=== PATIENT | female | born 1985 | race Caucasian/White ===

== ENCOUNTER 2022-01-24 16:45 | Emergency (ER) | payer SELFPAY ==
[~2022-01-24] VITALS: Ht 162.5 cm; Wt 68.0 kg
[2022-01-24 16:45] VITALS: BP 130/84
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
== END 2022-01-24 17:36 | disposition home or self-care (01) ==
LOC: ER 16:47
DX: T74.21XA Adult sexual abuse, confirmed, initial encounter (principal); Y07.59 Other non-family member, perpetrator of maltreatment and neglect
CPT/HCPCS: 99283

== ENCOUNTER 2022-02-06 13:06 | Emergency (ER) | payer MEDICAID ==
[~2022-02-06] VITALS: Ht 162 cm; Wt 68.3 kg
--- NOTE | 2022-02-06 13:44 | ED Psychosocial ---
General Chief Complaint: Psych/Social Disorder Stated Complaint: PSYCH EVAL-SUICIDAL IDEATIONS Nursing Triage Note: PT AMB TO RM 8 PT STATES YESTERDAY AT APPROX 10 AM HAD TAKEN APPROX 50 LEXAPRO 10MG TABLETS TRYING TO HARM SELF, PT STATES HAS HAD A ROUGH TIME WOULD NOT GO INTO DETAILS AND HAS HAD DEPRESSION FOR A LONG TIME. STATES ATTEMPTED SUICIDE WHEN WAS 17YRS OLD AND HER FATHER COMMITTED SUICIDE YRS AGO. PT DENIES BEING SUICIDAL AT THIS X. STATES JUST WANTS TO GET SOME HELP. FRIEND IN WAITING ROOM. Source: patient Exam Limitations: no limitations (SARAI BRADY) History of Present Illness Date Seen by Provider: Feb 06, 2022 Time Seen by Provider: 13:40 Initial Comments Patient is a 37-year-old female who presents to the ED for suicidal thoughts. This occurred yesterday. She states yesterday morning around 10 AM she took around 10 tablets of her 10 mg Lexapro for suicidal attempt. She states she went to bed and nap for 3 hours and woke up without any complaints. Patient recently moved from [place] 2 weeks ago. Patient friend brought her to the ED concerning for her suicidal thoughts yesterday. She states she has a history of depression. Does not see any therapist at this time. Denies hospitalization. Patient has no current suicidal or homicidal thoughts. Denies of any drug use or alcohol use. Denies chest pain, shortness of breath, nausea vomiting, diarrhea, fever, chills. Concern for . No urinary symptoms. (SARAI BRADY) Allergies and Home Medications Allergies Coded Allergies: No Known Drug Allergies (Unverified , 02/06/22) Patient Home Medication List Home Medication List Reviewed: Yes (SARAI BRADY) Review of Systems Constitutional: No chills, No diaphoresis EENTM: No hearing loss, No ear pain, No blurred vision, No double vision Respiratory: No cough, No dyspnea on exertion Cardiovascular: No chest pain Gastrointestinal: No abdominal pain, No diarrhea, No nausea, No vomiting Genitourinary: No decreased output, No discharge Musculoskeletal: No back pain, No gout Skin: No change in color, No change in hair/nails Psychiatric/Neurological: Depressed (SARAI BRADY) All Other Systems Reviewed Negative Unless Noted: Yes (SARAI BRADY) Past Jlqvlag-Jjeeuv-Fnrrsn Hx Patient Social History Tobacco Use?: No Substance use?: No Alcohol Use?: No Pt feels they are or have been: No (SARAI BRADY) Immunizations Up To Date First/Initial COVID19 Vaccinat: 2020 Second COVID19 Vaccination Lasha: 2020 COVID19 Vaccine Chemical Operations Specialist: RAMO (SARAI BRADY) Past Medical History Surgery/Hospitalization HX: HX CERVICAL CA Last Menstrual Period: Feb 05, 2022 (SARAI BRADY) Physical Exam Vital Signs - First Documented 02/06/22 02/06/22 13:14 18:00 Temp 36.5 Pulse 102 Resp 18 B/P (MAP) 134/88 (103) Pulse Ox 97 O2 Delivery Room Air (KYAW,JEAN CARLOS K DO) Capillary Refill : Less Than 3 Seconds (SARAI BRADY) Height, Weight, BMI Height: '" Weight: lbs. oz. kg; 26.00 BMI Method: General Appearance: WD/WN, no apparent distress HEENT: PERRL/EOMI, normal ENT inspection, TMs normal, pharynx normal Neck: non-tender, full range of motion, supple, normal inspection Respiratory: chest non-tender, lungs clear, normal breath sounds, no respiratory distress Gastrointestinal: normal bowel sounds, non tender, soft, no organomegaly Extremities: normal range of motion, non-tender, normal inspection, no pedal edema Neurologic/Psychiatric: grill prep cook II-XII nml as tested, no motor/sensory deficits, alert, normal mood/affect, oriented x 3 Thoughts/Hallucinations: normal thought pattern, no apparent hallucination Skin: normal color, warm/dry (SARAI BRADY) Suicide Risk Suicide Risk Suicide Risk Level / RN Screen: Low Low Suicide Risk Level []Suicidal Ideation WITHOUT method, intent, plan or behavior more than a month ago []]Modifiable risk factors and strong protective factors []No reported history of suicidal ideation or behavior []Patient reports/exhibits symptoms consistent with psychosis []Patient reports a plan that would be unrealistic/impossible to complete and intent []Suicide attempt prior to arrival (Indicates at LEAST Low Suicide Risk, consider other risk factors) Moderate Suicide Risk Level: []Suicidal ideation with method, WITHOUT plan, intent or behavior in the past month []Multiple risk factors and few protective factors []Patient reports intent to follow through on plan to end life if allowed to leave hospital, and has attempted to elope from the hospital High Suicide Risk Level: [] Suicidal ideation with intent or intent with a plan in the past month [] Patient has harmed self or attempted suicide while in the hospital [] Patient has hx of or current Command Auditory hallucinations to harm self or others that they follow without hesitation [] Patient refuses to disclose plan, and indicates intent to complete [] Patient reports plan that is possible to accomplish and/or has means to comp lete Risk factors supporting recommendation: [] Non-compliance with treatment (acute or chronic) [] Patient has access to or owns firearms and/or stockpiled medications [] Hx Impulsive behavior [] Pending incarceration or homelessness [] Sexual abuse [] Family history and/or exposure to suicide [] Adverse childhood experiences [] Exposure to violence or negative socio-political cultural, and economic forces [] Current or hx of substance use/abuse [] Chronic physical pain or other acute medical problem (AIDS, COPD, Cancer, etc) [] Perceived burden on family or others [] Patient has attempted to elope [] Unable to answer and/or unable to identify [] Refuses to agree to a safety plan Protective Factors supporting recommendation: [] Identifies reasons for living [] Future plans/goals [] Engaged in work or School [] Good family support network [] Good social support network [] Responsibility to family [] Belief that suicide is immoral, against their scientology beliefs [] High spirituality and involvement in gnosticist community [] Fear of or dying due to pain and suffering [] Established outpt psychiatric services [] Unable to answer and/or unable to identify Risk Assessment Tool Score: Low (SARAI BRADY) Progress/Results/Core Measures Results/Orders Lab Results Laboratory Tests Test 02/06/22 13:55 02/06/22 14:15 02/06/22 14:38 02/06/22 17:27 Range/Units White Blood Count 4.8 4.3-11.0 10^3/uL Red Blood Count 4.23 3.80-5.11 10^6/uL Hemoglobin 14.6 11.5-16.0 g/dL Hematocrit 43 35-52 % Mean Corpuscular Volume 101 H 80-99 fL Mean Corpuscular Hemoglobin 35 H 25-34 pg Mean Corpuscular Hemoglobin Concent 34 32-36 g/dL Red Cell Distribution Width 12.9 10.0-14.5 % Platelet Count 190 130-400 10^3/uL Mean Platelet Volume 8.2 L 9.0-12.2 fL Immature Granulocyte % (Auto) 0 % Neutrophils (%) (Auto) 59 42-75 % Lymphocytes (%) (Auto) 32 12-44 % Monocytes (%) (Auto) 5 0-12 % Eosinophils (%) (Auto) 2 0-10 % Basophils (%) (Auto) 1 0-10 % Neutrophils # (Auto) 2.9 1.8-7.8 10^3/uL Lymphocytes # (Auto) 1.6 1.0-4.0 10^3/uL Monocytes # (Auto) 0.3 0.0-1.0 10^3/uL Eosinophils # (Auto) 0.1 0.0-0.3 10^3/uL Basophils # (Auto) 0.1 0.0-0.1 10^3/uL Immature Granulocyte # (Auto) 0.0 0.0-0.1 10^3/uL Sodium Level 141 135-145 MMOL/L Potassium Level 3.9 3.6-5.0 MMOL/L Chloride Level 104 98-107 MMOL/L Carbon Dioxide Level 17 L 21-32 MMOL/L Anion Gap 20 H 5-14 MMOL/L Blood Urea Nitrogen 9 7-18 MG/DL Creatinine 0.76 0.60-1.30 MG/DL Estimat Glomerular Filtration Rate 105 BUN/Creatinine Ratio 12 Glucose Level 83 70-105 MG/DL Calcium Level 8.6 8.5-10.1 MG/DL Corrected Calcium 8.3 L 8.5-10.1 MG/DL Total Bilirubin 0.5 0.1-1.0 MG/DL Aspartate Amino Transf (AST/SGOT) 40 H 5-34 U/L Alanine Aminotransferase (ALT/SGPT) 24 0-55 U/L Alkaline Phosphatase 53 40-136 U/L Total Protein 7.5 6.4-8.2 GM/DL Albumin 4.4 3.2-4.5 GM/DL Salicylates Level < 5.0 L 5.0-20.0 MG/DL Acetaminophen Level < 10 L 10-30 UG/ML Serum Alcohol 280 H 166 H <10 MG/DL Influenza Type A (RT-PCR) Not Detected Not Detecte Influenza Type B (RT-PCR) Not Detected Not Detecte SARS-CoV-2 RNA (RT-PCR) Not Detected Not Detecte Urine Color YELLOW Urine Clarity CLEAR Urine pH 6.0 5-9 Urine Specific [place] 1.025 H 1.016-1.022 Urine Protein TRACE H NEGATIVE Urine Glucose (UA) NEGATIVE NEGATIVE Urine Ketones NEGATIVE NEGATIVE Urine Nitrite NEGATIVE NEGATIVE Urine Bilirubin NEGATIVE NEGATIVE Urine Urobilinogen 0.2 < = 1.0 MG/DL Urine Leukocyte Esterase NEGATIVE NEGATIVE Urine RBC (Auto) 2+ H NEGATIVE Urine RBC 0-2 /HPF Urine WBC RARE /HPF Urine Squamous Epithelial Cells 2-5 /HPF Urine Crystals NONE /LPF Urine Bacteria TRACE /HPF Urine Casts NONE /LPF Urine Mucus SMALL H /LPF Urine Culture Indicated NO Urine Test NEGATIVE NEGATIVE Urine Opiates Screen NEGATIVE NEGATIVE Urine Oxycodone Screen NEGATIVE NEGATIVE Urine Methadone Screen NEGATIVE NEGATIVE Urine Propoxyphene Screen NEGATIVE NEGATIVE Urine Barbiturates Screen NEGATIVE NEGATIVE Ur Tricyclic Antidepressants Screen NEGATIVE NEGATIVE Urine Phencyclidine Screen NEGATIVE NEGATIVE Urine Amphetamines Screen NEGATIVE NEGATIVE Urine Methamphetamines Screen NEGATIVE NEGATIVE Urine Benzodiazepines Screen NEGATIVE NEGATIVE Urine Cocaine Screen NEGATIVE NEGATIVE Urine Cannabinoids Screen NEGATIVE NEGATIVE Test 02/06/22 22:05 02/07/22 00:33 Range/Units Serum Alcohol 38 H < 10 <10 MG/DL (JEAN CARLOS CARD DO) My Orders Orders - JEAN CARLOS CARD DO Ed Iv/Invasive Line Start (02/06/22 23:04) Lactated Ringers (Lr 1000 Ml Iv Solution (02/06/22 23:15) Alcohol (02/07/22 00:21) (JEAN CARLOS CARD DO) Medications Given in ED Current Medications Medications Dose Ordered Sig/Jonatan Route Start Time Stop Time Status Last Admin Dose Admin Lactated Ringer's 1,000 ml @ 0 mls/hr Q0M ONCE IV 02/06/22 23:15 02/06/22 23:16 DC 02/06/22 23:08 999 MLS/HR (JEAN CARLOS CARD DO) Vital Signs/I&O 02/06/22 02/06/22 02/06/22 18:00 19:55 23:08 Temp 37.1 37.0 Pulse 104 105 Resp 16 16 B/P (MAP) 141/97 139/95 Pulse Ox 98 98 O2 Delivery Room Air Room Air Room Air 02/07/22 00:00 Intake Total 2000 ml Balance 2000 ml (JEAN CARLOS CARD DO) Blood Pressure Mean: 103 Progress Progress Note : Progress Note 2300--ASSUMED CARE OF PT, ETOH LEVEL IS TRENDING DOWN, PT IS RECEIVING IV FLUIDS PT IS CALM AND COOPERATIVE AND VOICES NO COMPLAINTS. MALE FRIEND CONTINUES TO STAY WITH PT. WILL RECHECK ETOH LEVEL AROUND 0030 0400--PT REMAINS CALM AND VOICES NO COMPLAINTS. MALE FRIEND CONTINUES TO STAY WITH PT. STILL ATTEMPTING TO GET A MENTAL HEALTH SCREEN. [facility] HAS BEEN CONTACTED MULTIPLE TIMES. 0445--PT UP TO BATHROOM, AND UPDATED HER THAT SHE WAS NEXT IN LINE TO BE SCREENED, AND SHE CONTINUES TO BE AGREEABLE TO THIS. PT VOICES NO COMPLAINTS. (JEAN CARLOS CARD DO) Comment Sinus rhythm, low QRS voltage in precordial leads, 94 bpm, QRS duration 77 MS, QTc 391 MS (SARAI BRADY) Departure Communication (Admissions) 0100--[facility] CONTACTED TO DO MENTAL HEALTH SCREEN. ALL PT'S INFORMATION IS BEING FAXED. 0250--CALLED [facility], NO AVAILABLE AGENTS, THEN DISCONNECTED. 0258--CALLED [facility] FOR AN UPDATE ON WHERE PT IS AT IN THE SCREENING PROCESS, AND TO VERIFY THEY HAVE RECEIVED ALL PT'S INFORMATION. THEY WILL CHECK AND CALL BACK. 0347--CALLED [facility], PLACE ON HOLD, THEN DISCONNECTED 0407--CALLED [facility], NO AVAILABLE AGENTS, THEN DISCONNECTED 0413--SOTO [facility], PLACED ON HOLD. 0428--SPOKE WITH [facility]. THEY HAVE RECEIVED ALL PT'S INFORMATION, AND SHE IS THE NEXT IN LINE TO BE SCREENED. THEY WILL CALL AND ARRANGE TELEVISIT WHEN THEY ARE READY TO DO SCREEN. (JEAN CARLOS CARD DO) Communication (PCP) Patient on arrival denies of any drug use or alcohol use. Her alcohol level was 260. She is here with a friend who states she has a history of alcohol consumption. Patient was given 2 L of fluid with gradual decrease of alcohol level. She cannot be evaluated until her alcohol level is 0.08. Lab work was otherwise unremarkable. Otherwise medically cleared. Poison control was con tacted who recommend lab work. Patient did not take a toxic dose. She has no suicidal or homicidal thoughts today. She did have thoughts yesterday. She was requesting evaluation and offered resources. Do not feel that patient is wanting hospitalization. Continue monitoring until alcohol level improves so patient can be evaluated. (SARAI BRADY) Impression Primary Impression: Depression Qualified Codes: F32.9 - Major depressive disorder, single episode, unspecified Additional Impressions: Suicidal thoughts Alcohol intoxication Qualified Codes: F10.929 - Alcohol use, unspecified with intoxication, unspecified Disposition: 01 HOME, SELF-CARE Condition: Stable Departure-Patient Inst. Decision time for Depature: 07:22 (JUSTIN OLSEN MD) Referrals: [facility],LOCAL PHYSICIAN (PCP) Primary Care Physician Patient Instructions: Alcohol Intoxication ED, Depression, Adult (DC) Add. Discharge Instructions: Please call [facility] this morning for further evaluation and plan of care. A safety plan was implemented for you this morning. And a person from [facility] should be reaching out to you as well today or in the next couple of days. Come back to the emergency room if you have any further thoughts of harming yourself or any other emergent, concerning complaints. [facility] [phone] [address] [place] [address] Get Immediate Help [email or web address] or Call [phone]) SARAI BRADY Feb 06, 2022 13:44 JEAN CARLOS CARD DO Feb 07, 2022 03:04 JUSTIN OLSEN MD Feb 07, 2022 07:24
[2022-02-06 14:06] LABS: BASOPHILS # (AUTO) 0.1 10^3/uL (0.0-0.1); BASOPHILS % (AUTO) 1 % (0-10); EOSINOPHILS # (AUTO) 0.1 10^3/uL (0.0-0.3); EOSINOPHILS % (AUTO) 2 % (0-10); HEMATOCRIT 43 % (35-52); HEMOGLOBIN 14.6 g/dL (11.5-16.0); LYMPHOCYTES # (AUTO) 1.6 10^3/uL (1.0-4.0); LYMPHOCYTES % (AUTO) 32 % (12-44); MEAN CORPUSCULAR HEMOGLOBIN 35 pg (25-34); MEAN CORPUSCULAR HGB CONC 34 g/dL (32-36); MEAN CORPUSCULAR VOLUME 101 fL (80-99); MEAN PLATELET VOLUME 8.2 fL (9.0-12.2); MONOCYTES # (AUTO) 0.3 10^3/uL (0.0-1.0); MONOCYTES % (AUTO) 5 % (0-12); NEUTROPHILS # (AUTO) 2.9 10^3/uL (1.8-7.8); NEUTROPHILS % (AUTO) 59 % (42-75); PLATELET COUNT 190 10^3/uL (130-400); WHITE BLOOD COUNT 4.8 10^3/uL (4.3-11.0)
[2022-02-06 14:23] LABS: ALBUMIN 4.4 GM/DL (3.2-4.5); CHLORIDE 104 MMOL/L (98-107); POTASSIUM 3.9 MMOL/L (3.6-5.0); SODIUM 141 MMOL/L (135-145)
[2022-02-06 14:24] LABS: CALCIUM 8.6 MG/DL (8.5-10.1)
[2022-02-06 14:26] LABS: GLUCOSE 83 MG/DL (70-105); TOTAL PROTEIN 7.5 GM/DL (6.4-8.2)
[2022-02-06 14:27] LABS: BILIRUBIN,TOTAL 0.5 MG/DL (0.1-1.0); CARBON DIOXIDE 17 MMOL/L (21-32)
[2022-02-06 14:29] LABS: ALKALINE PHOSPHATASE 53 U/L (40-136); CREATININE SERUM 0.76 MG/DL (0.60-1.30); GFR ESTIMATED 105
[2022-02-06 14:31] LABS: BUN/CREATININE RATIO 12
[2022-02-06 14:32] LABS: ALANINE AMINOTRANSFERASE 24 U/L (0-55); SALICYLATE < 5.0 MG/DL (5.0-20.0)
[2022-02-06 14:36] LABS: ACETAMINOPHEN < 10 UG/ML (10-30)
[2022-02-06 14:47] LABS: BILIRUBIN,URINE NEGATIVE (NEGATIVE); CLARITY,URINE CLEAR; COLOR,URINE YELLOW; GLUCOSE, URINE (UA) NEGATIVE (NEGATIVE); KETONES,URINE NEGATIVE (NEGATIVE); LEUKOCYTE ESTERASE ,URINE NEGATIVE (NEGATIVE); NITRITE,URINE NEGATIVE (NEGATIVE); PROTEIN,URINE TRACE (NEGATIVE)
[2022-02-06] MEDS ORDERED: NS IV 1000 ML 1,000 ML IV STA ×2 (14:57→18:55)
[2022-02-06 15:01] LABS: AMPHETAMINE SCREEN, URINE NEGATIVE (NEGATIVE); BARBITURATE SCREEN URINE NEGATIVE (NEGATIVE); BENZODIAZEPINES SCREEN URINE NEGATIVE (NEGATIVE); CANNABINOID SCREEN, URINE NEGATIVE (NEGATIVE); COCAINE SCREEN URINE NEGATIVE (NEGATIVE); HCG,QUALITATIVE URINE NEGATIVE (NEGATIVE); METHADONE STAT NEGATIVE (NEGATIVE); OPIATE SCREEN URINE NEGATIVE (NEGATIVE); OXYCODONE STAT NEGATIVE (NEGATIVE); PROPOXYPHENE STAT NEGATIVE (NEGATIVE); TRICYCLIC ANTIDEPRESSANTS SCRE NEGATIVE (NEGATIVE)
[2022-02-06 15:02] LABS: BACTERIA,URINE TRACE /HPF; RBC,URINE 0-2 /HPF; WBC,URINE RARE /HPF
[2022-02-06] MEDS ORDERED: NS IV 1000 ML 1,000 ML ONE (18:57)
[2022-02-06] MEDS ORDERED: LACTATED RINGERS 1,000 ML IV ONE (23:15)
[2022-02-07 07:25] VITALS: BP 122/68
== END 2022-02-07 07:25 | disposition home or self-care (01) ==
LOC: EDUNIT# 13:06 → ER 13:08
DX: F10.929 Alcohol use, unspecified with intoxication, unspecified (principal); F32.A Depression, unspecified; R45.851 Suicidal ideations; Z91.51 Personal history of suicidal behavior; Y90.8 Blood alcohol level of 240 mg/100 ml or more
CPT/HCPCS: 80053; 80306; 81000; 84703; 85025; 87636; 93005; 99284; G0480 ×4; 36415; 80320; 80329